=== PATIENT | female | born 1960 | race Caucasian/White ===

== ENCOUNTER → 2020-06-07 | Outpatient (CLI) | payer OTHER | END | disposition home or self-care (01) | LOC: LAB 14:14 | PROVIDERS: ATTEND Internal Medicine Gastroenterology | DX: Z11.59 Encounter for screening for other viral diseases (principal) | CPT/HCPCS: U0003-CS ==

== ENCOUNTER 2021-08-06 18:27 | Emergency (ER) | payer OTHER ==
[~2021-08-06] VITALS: Ht 162.6 cm; Wt 90.0 kg
[~2021-08-06 18:27] MED LIST: GABA600T7 PO; META-21 PO; OXYC5CAP PO
--- NOTE | 2021-08-06 19:33 | PHYS DOC ---
General Adult EDM: Chief Complaint: OTHER COMPLAINTS HPI: HPI: Patient is a 61-year-old female with a past medical history hypertension hyperlipidemia chronic back pain resulting in permanent paresthesia bilateral lower extremity requiring a wheelchair presents with a chief complaint of numbness and tingling left side of her face and arm. Patient states initial onset Friday morning. She states the numbness and tingling is worse in her left arm and her left face particularly around her mouth lasting for approximately 4 to 5 hours then symptoms completely resolved. Patient states later on in the evening symptoms returned again with numbness and tingling in arm left face particularly around the mouth lasted proximately 4 hours then completely resolved. Patient states that this time she had some numbness and tingling in her left hand which still persist. Exam patient is alert noted x4. She has no facial droop or slurred speech. I do not see any upper or lower extremity weakness. Patient also complains of chest discomfort that she has had on and off for approximately 6 months. Patient states pain is usually substernal associated with shortness of breath and usually resolves when she takes her lorazepam. Patient's last dose of lorazepam was this a.m. prior to her chest discomfort episode. Patient has not taken lorazepam this evening. NIH stroke scale of 0 Review of Systems: Review of Systems: Review of systems: Constitutional symptoms- No fever, no chills. Eyes- No Discharge, No Visual Loss Respiratory symptoms- Positive shortness of breath, No wheezing, No Dyspnea on Exertion Cardiovascular Systems; Positive chest pain, No Palpitations, No syncope Gastrointestinal symptoms: NO abdominal pain, no nausea, no vomiting or diarrhea. Genitourinary symptoms: No dysuria. Musculoskeletal symptoms: No back pain No extremity pain. NEUROLOGICAL Symptoms: No headache, no generalized weakness; No focal Weakness positive paresthesia Skin: No rash. Heart Score: C/O Chest Pain: Yes HEART Score for Chest Pain: HEART Score for Chest Pain Response (Comments) Value History Slighlty/Non-Suspicious 0 ECG Normal 0 Age >45 - < 65 1 Risk Factors 1 or 2 Risk Factors 1 Total 2 Risk Factors: Risk Factors: DM, Current or recent (<one month) smoker, HTN, HLP, family history of CAD, obesity. Risk Scores: Score 0 - 3: 2.5% MACE over next 6 weeks - Discharge Home Score 4 - 6: 20.3% MACE over next 6 weeks - Admit for Clinical Observation Score 7 - 10: 72.7% MACE over next 6 weeks - Early Invasive Strategies Allergies: Allergies: Allergies Coded Allergies Type Severity Reaction Last Updated Verified Penicillins Allergy Intermediate 06/09/20 Yes Sulfa (Sulfonamide Antibiotics) Allergy Intermediate 06/09/20 Yes Physical Exam: PE: General: alert, no acute distress. Skin: warm, dry and intact, no erythema, no rash. HENT: bilateral external ears normal, oropharynx moist, nose normal. Head:: Normocephalic, atraumatic. Neck: Trachea midline. Eyes: EOMI, Normal conjunctiva, No drainage CARDIOVASCULAR: Regular rate and rhythm RESPIRATORY: No respiratory distress Back: Full range of motion. MUSCULOSKELETAL: Full range of motion of bilateral upper and lower extremities. GASTROINTESTINAL: Abdomen soft without rebound or guarding. NEUROLOGICAL: Alert and noted to person, place and time. No neurological deficits observed Psychiatric: Cooperative. Normal judgment EKG: EKG: [] Performed at 1915 Rate [address] elevation No ST depression No acute PR Radiology/Procedures: Radiology/Procedures: [] Impression: CT HEAD INDICATION: Reason: paresthesia / Spl. Instructions: / History: COMPARISON: None Available. Exposure: One or more of the following individualized dose reduction techniques were utilized for this examination: 1. Automated exposure control 2. Adjustment of the mA and/or kV according to patient size 3. Use of iterative reconstruction technique TECHNIQUE: 5 mm contiguous axial images were obtained from the skull base to the vertex in both bone and soft tissue algorithm. FINDINGS: Mild bilateral periventricular white matter hypodensities likely chronic small vessel ischemic disease. No evidence of acute intracranial hemorrhage. No extra-axial fluid collections. No mass effect or midline shift. Ventricular size is appropriate. Basal cisterns are patent. No fractures identified.Lynch-white differentiation is preserved.Globes and orbits are within normal limits. Paranasal sinuses and mastoid air cells are clear. IMPRESSION: No acute intracranial findings. Course & Med Decision Making: Course & Med Decision Making Pertinent Labs and Imaging studies reviewed. (See chart for details) [] Patient was evaluated for chief complaint. Work-up consisted of laboratory analysis and radiologic imaging. Results reviewed and discussed with patient and family. CT head without acute abnormalities. Patient without any focal neurological deficit NIH stroke scale of 0. Patient's chest discomfort and anxiety resolved with benzodiazepine. Discussed hospitalization for patient to be evaluated by neurology--vies of the benefits of hospitalization her and her decided against and will follow up on an outpatient basis. Advised to return to the ER if symptoms return persist or any new concerning symptoms arise. Dragon Disclaimer: Dragon Disclaimer: This electronic medical record was generated, in whole or in part, using a voice recognition dictation system. Departure Departure Impression: Primary Impression: Paresthesia Condition: STABLE Referrals: RIN DEXTER (PCP) Patient Instructions: Paresthesia ANABEL VIDES I DO Aug 06, 2021 19:33
[2021-08-06 20:08] LABS: BASO % 0 % (0-3); EOS # 0.1 x10^3/uL (0.0-0.7); EOS % 1 % (0-3); HEMATOCRIT 43.8 % (36.0-47.0); LYMPH # 2.9 x10^3/uL (1.0-4.8); LYMPH % 24 % (24-48); MEAN CORPUSCULAR HEMOGLOBIN 31 pg (25-35); MEAN CORPUSCULAR HGB CONC 34 g/dL (31-37); MEAN CORPUSCULAR VOLUME 90 fL (79-100); MONO # 0.6 x10^3/uL (0.0-1.1); MONO % 5 % (0-9); NEUT # 8.1 x10^3/uL (1.8-7.7); NEUT % 69 % (31-73); PLATELET COUNT 373 x10^3/uL (140-400); RED BLOOD COUNT 4.88 x10^6/uL (3.50-5.40); RED CELL DISTRIBUTION WIDTH 16.3 % (11.5-14.5); WHITE BLOOD COUNT 11.8 x10^3/uL (4.0-11.0)
--- NOTE | 2021-08-06 20:09 | RAD ---
XR CHEST 1V INDICATION: chest pain . COMPARISON STUDY: None. FINDINGS: Lungs: Normal lung volume. Left basilar heterogeneous opacity. The tracheobronchial tree and hilar st ructures are normal. Pleura: No pleural effusion or pneumothorax. Heart and Mediastinum: The cardiomediastinal silhouette is normal. The great vessels of the thorax ar e normal. IMPRESSION: Left basilar opacities, which could represent subsegmental atelectasis or potentially an infectious/i nflammatory process. Electronically signed by: Alexander Neal MD (08/06/2021 8:07 PM) [facility]
[2021-08-06 20:16] LABS: CALCIUM 9.1 mg/dL (8.5-10.1); CREATININE 0.7 mg/dL (0.6-1.0); GFR 84.8; POTASSIUM 3.3 mmol/L (3.5-5.1)
[2021-08-06 20:21] LABS: ALBUMIN 3.4 g/dL (3.4-5.0); ALBUMIN/GLOBULIN RATIO 0.9 (1.0-1.7); TOTAL BILIRUBIN 0.3 mg/dL (0.2-1.0); TOTAL PROTEIN 7.4 g/dL (6.4-8.2)
--- NOTE | 2021-08-06 20:48 | RAD ---
CT HEAD INDICATION: Reason: paresthesia / Spl. Instructions: / History: COMPARISON: None Available. Exposure: One or more of the following individualized dose reduction techniques were utilized for thi s examination: 1. Automated exposure control 2. Adjustment of the mA and/or kV according to patient size 3. Use of iterative reconstruction technique TECHNIQUE: 5 mm contiguous axial images were obtained from the skull base to the vertex in both bone and soft tissue algorithm. FINDINGS: Mild bilateral periventricular white matter hypodensities likely chronic small vessel ischemic diseas e. No evidence of acute intracranial hemorrhage. No extra-axial fluid collections. No mass effect or midline shift. Ventricular size is appropriate. Basal cisterns are patent. No fractures identified.Lynch-white differentiation is preserved.Globes and orbits are within normal l imits. Paranasal sinuses and mastoid air cells are clear. IMPRESSION: No acute intracranial findings. Electronically signed by: Horacio Beard MD (08/06/2021 8:46 PM) [id number]
[2021-08-06 21:56] VITALS: BP 140/64
--- NOTE | 2021-08-07 00:59 | EKG ---
[facility] [address] [place] [address] Test Date: 2021-08-06 Test Time: 19:14:05 Pat Name: POLO DAVIS Department: Room: Gender: F Senior [employer]: : 1960 Requested By: ANABEL VIDES Order Number: [id number] Reading MD: Wil Seymour Measurements Intervals [place] Rate: 87 P: 127 MA: 192 QRS: -12 QRSD: 76 T: 62 QT: 356 QTc: 429 Interpretive Statements SINUS RHYTHM LEFT ATRIAL ABNORMALITY LEFTWARD AXIS QRS(T) CONTOUR ABNORMALITY CONSISTENT WITH INFERIOR INFARCT PROBABLY OLD ABNORMAL ECG RI6.02 No previous ECG available for comparison Electronically Signed On 08-07-2021 13:02:41 CDT by Wil Seymour
--- NOTE | 2021-08-07 02:27 | EKG ---
[facility] [address] [place] [address] Test Date: 2021-08-06 Test Time: 19:15:50 Pat Name: POLO DAVIS Department: Room: Gender: F General Counsel: : 1960 Requested By: ANABEL VIDES Order Number: [id number] Reading MD: Wil Seymour Measurements Intervals [place] Rate: 88 P: 31 [place]: 188 QRS: -2 QRSD: 72 T: 67 QT: 368 QTc: 449 Interpretive Statements SINUS RHYTHM LEFT ATRIAL ABNORMALITY LEFTWARD AXIS ABNORMAL ECG Electronically Signed On 08-07-2021 13:02:33 CDT by Wil Seymour
== END 2021-08-06 22:05 | disposition home or self-care (01) ==
LOC: ER 18:27
DX: R20.2 Paresthesia of skin (principal); R07.2 Precordial pain; R51.9 Headache, unspecified; R06.02 Shortness of breath; I10 Essential (primary) hypertension; G89.29 Other chronic pain; Z88.0 Allergy status to penicillin; Z88.2 Allergy status to sulfonamides
CPT/HCPCS: 36415; 70450; 71045; 80053; 84484; 85025; 93005; 96374; 99285; J2060